=== PATIENT | female | born 1960 | race Caucasian/White ===

== ENCOUNTER 2016-07-04 23:23 | Emergency (ER) | payer OTHER ==
--- NOTE | ~2016-07-04 | CT71 ---
[facility] A Service of [facility] RADIOLOGY TEXT RESULTS PATIENT: NANCY REYNAGA LOCATION: [facility] : 60 UNIT #: [id number] AGE: [address]: Marge Albarran MD SEX: F ORDER DR: [id number] [facility]. [place], [place] [address] [id number] MR#: [id number] Acc #: [id number] NAME: NANCY REYNAGA. : 1960 SEX: F STUDY DATE/TIME: 07/04/2016 21:52 UNIT: [facility] ROOM: STUDY DESCRIPTION: CT Head Wo Contrast Attending Physician: Marge Albarran M.D. Ordering Physician: Marge Albarran M.D. Primary Care Physician: Clifton Marshall M.D. MEDICAL IMAGING REPORT This report is preliminary unless electronic signature is present EXAM Head CT, no contrast. DATE OF EXAM 07/04/2016 INDICATIONS 56-year-old female with headache and fever for a week. TECHNIQUE Noncontrast CT brain was performed. NOTE: This CT exam was performed with one or more of the following radiation dose reduction techniques: automatic exposure control, adjustment of mA and/or kV according to patient size, and iterative reconstruction. COMPARISON 05/13/[address] BRAIN: Sulci and ventricles unremarkable. No midline shift. No evidence of acute intracranial hemorrhage. There is no mass, mass effect or edema to suggest acute infarct and no extraaxial fluid collections are present. The globes are intact. The bones are intact. Sinuses clear. IMPRESSION 1. Negative noncontrast CT of the brain. Dictated by... Remi Gilliam M.D. THIS IS AN ELECTRONICALLY VERIFIED REPORT Remi Gilliam M.D. at 07/05/2016 6:31 AM OLEGARIO/goyo [facility] A Service of [facility] RADIOLOGY TEXT RESULTS PATIENT: NANCY REYNAGA LOCATION: [facility] : 60 UNIT #: [id number] AGE: [address]: Marge Albarran MD SEX: F ORDER DR: TD: 07/04/2016 23:32 JOB #: [id number] MEDICAL IMAGING REPORT Page 1 of 1 COPY
[2016-07-04 22:09] LABS: BASOPHIL# 0.1 X10e3 (0-0.3); BASOPHIL% 0.8 % (0-2.5); EOSINOPHIL# 0.2 X10e3 (0-0.7); EOSINOPHIL% 2.2 % (0.0-7.0); HEMATOCRIT 41.9 % (35.0-45.0); HEMOGLOBIN 13.8 gm/dL (12.0-16.0); LYMPHOCYTE% 29.2 % (17.0-45.0); MEAN CELL VOLUME 94.9 FL (83-96); MEAN CORPUSCULAR HEMOGLOBIN 31.3 PG (28-34); MEAN PLATELET VOLUME 8.3 FL (6.5-11.5); MONOCYTE# 0.9 X10e3 (0-1.0); MONOCYTE% 8.8 % (3.0-12.0); NEUTROPHIL# 6.1 X10e3 (1.5-7.1); PLATELET COUNT 309 X10e3 (140-420); RED BLOOD COUNT 4.42 X10e (3.90-5.30); RED CELL DISTRIBUTION WIDTH 13.8 % (11.0-15.5); WHITE BLOOD COUNT 10.3 X10e3 (4.0-10.5)
[2016-07-04 22:12] LABS: DIFF IND NO
[2016-07-04 22:17] LABS: INFLUENZA A NEG (NEG); INFLUENZA B NEG (NEG)
[2016-07-04 22:32] LABS: BUN/CREATININE RATIO 15.71; CALCIUM SERUM 9.1 mg/dL (8.4-10.2); CREATININE SERUM 0.7 mg/dL (0.6-1.4); GLOM FILT RATE Estimated 96.9 mL/min (>60); POTASSIUM 4.2 mmol/L (3.5-5.1)
[~2016-07-04 23:23] MED LIST: CIPRO PO; DICLOFENAC PO; FLEXERIL PO; FLEXERIL10 MG PO; IBUPROFEN800 MG PO; MEDROL4 MG/DOSE- PO; NAPROSYN375 MG PO; PYRIDIUM PO; VICODIN 5/1 TAB 5/50 PO; VICODIN PO
== END 2016-07-05 00:10 | disposition home or self-care (01) ==
LOC: CED 23:23
PROVIDERS: Emergency Medicine
DX: R51 Headache (principal); Z91.041 Radiographic dye allergy status
CPT/HCPCS: 70450; 80048; 85025; 87651; 87804; 96374; 96375; 99284; J0780; J1885; J2930